=== PATIENT | male | born 1950 | race Caucasian/White ===

== ENCOUNTER 2016-04-07 19:25 | Inpatient (IN) | payer MEDICARE, OTHER ==
--- NOTE | ~2016-04-07 | HP ---
History And Physical [place] [address] [id number] [place]. [address] NAME: DIXON MCKEON : 46 STATUS : ADM IN PAT#: [id number] AGE: 66 ADM/REG DATE : 04/07/16 MR#: [id number] REPORT SERV DATE: 04/08/16 DICTATED BY: MALAIKA LEAVITT DATE: 04/07/16 REPORT STATUS : Draft TRANSCRIBED BY: MODL DATE: 04/07/16 DATE OF ADMISSION: 04/07/2016 CHIEF COMPLAINT: A 66-year-old male presenting with multiple myeloma on chemotherapy, and now a month or more a progressive bronchitis. HISTORY OF PRESENT ILLNESS: The patient's history was obtained through careful interview with the patient, , and daughter, coupled with review of [facility] medical records. The patient first developed multiple myeloma in 2012. He has had complications of lytic bone disease, but no significant renal manifestations. He has been on multiple rounds of different chemotherapy throughout the years followed by Dr. Nina. His last chemotherapy dose was on 03/28/2016. He generally does not have any worsening of chronic symptoms and no acute symptoms after chemotherapy. He states that over the last four weeks he has had progressive shortness of breath characterized by dyspnea on exertion and a cough that he states is "like crazy" often nonproductive. He has had lightheadedness related to his cough and sometimes as if "gurgling" phlegm that he can bring up. He has lost about 5 pounds in last month. He has had a poor appetite. He has had occasional nausea with vomiting. Then for about 10 days he has had fevers and chills on a daily basis measured between 100 and 101.0. He becomes diaphoretic and then even after he changes his shirt it so drenched with sweat, sometimes having night sweats as well. He had a seven-day course of Augmentin completed on 04/05/2016, but it did not help his symptoms at all. REVIEW OF SYSTEMS: Otherwise, a 14-point review of systems was obtained and was negative. PAST MEDICAL HISTORY: 1. Multiple myeloma with lytic bone lesions followed by Dr. Nina, on chemotherapy. 2. Large hiatal hernia. 3. Respiratory syncytial virus (RSV). 4. No cardiac disease. PAST SURGICAL HISTORY: 1. Right hip surgery for multiple myeloma. 2. Right shoulder surgery in December 2015. ALLERGIES: NO KNOWN DRUG ALLERGIES. History And Physical [address] [address] NAME: DIXON MCKEON : [birth year] STATUS : ADM IN PAT#: [id number] AGE: 66 ADM/REG DATE : 04/07/16 MR#: [id number] REPORT SERV DATE: 04/08/16 DICTATED BY: MALAIKA LEAVITT DATE: 04/07/16 REPORT STATUS : Draft TRANSCRIBED BY: BONNIE DATE: 04/07/16 SOCIAL HISTORY: He is . in good health. Has four children, has grandchildren. He lives in [place], [place]. He is retired from [employer]. He also served in [employer] and may have had [place] exposure. No tobacco abuse. No alcohol abuse. FAMILY HISTORY: 1. Mother and father with "old age.". 2. Brother with renal cell carcinoma. CURRENT MEDICATIONS: 1. Acyclovir 400 mg p.o. b.i.d. 2. ProAir. 3. Augmentin 875 mg p.o. b.i.d., completed on 04/05/2016. 4. Guaifenesin with codeine cough syrup. 5. Ibuprofen and naproxen p.r.n. 6. Tylenol cold. PHYSICAL EXAMINATION: VITAL SIGNS: Temperature 100.0, pulse 107, blood pressure 169/74, respiratory rate 22, and O2 saturation 95% on room air. GENERAL: A pleasant, cooperative male. He is not in any particular distress at this time, but just uncomfortable from cough. HEENT: Pupils equal, round, and reactive to light. No conjunctival pallor. No scleral icterus. Nares are patent. Oropharynx is clear of obstruction. Moist mucous membranes. NECK: Trachea midline. No thyromegaly. LYMPH: No cervical lymphadenopathy. No supraclavicular lymphadenopathy. RESPIRATORY: The patient has scattered inspiratory and expiratory wheezes throughout exam. If he had a history of asthma I would thought this was consistent with an asthma exacerbation. He has scattered upper respiratory rhonchi as well. No focal egophony. No dullness to percussion to suggest effusion. The patient does have just a slightly labored respiratory effort, but is in no means distressed. CARDIOVASCULAR: Tachycardic. Regular rhythm. No murmurs, rubs, or gallops. No current extremity edema is appreciated. ABDOMEN: Soft, nontender, and nondistended. Normal bowel sounds auscultated throughout. No organomegaly. DERMATOLOGICAL: Warm and dry extremities. No pallor. No cyanosis. PSYCHIATRIC: Normal affect. Good mood. Alert and oriented x3. LABORATORY DATA: White blood cell count 4.0, hemoglobin 9.3, hematocrit 29.9, and platelets 124. Sodium 140, potassium 3.5, chloride 103, bicarb 27, BUN 15, creatinine 1.09, and glucose 127. Lipase 65. INR 1.1. Lactic acid 1.4. Liver enzymes within normal limits. History And Physical [address] [address] NAME: DIXON MCKEON : 46 STATUS : ADM IN [facility]#: [id number] AGE: 66 ADM/REG DATE : 04/07/16 MR#: [id number] REPORT SERV DATE: 04/08/16 DICTATED BY: MALAIKA LEAVITT DATE: 04/07/16 REPORT STATUS : Draft TRANSCRIBED BY: BONNIE DATE: 04/07/16 STUDIES: 1. Chest x-ray by my own evaluation shows possible new haziness around the left heart border compared to 03/31/2016 chest x-ray, but really no acute cardiopulmonary process could be identified. 2. EKG by my own evaluation shows sinus rhythm, premature atrial complexes. ASSESSMENT AND PLAN: 1. Persistent bronchitis with possible recurrent respiratory syncytial virus ? The patient has SIRS criteria with temperature of 100.0, tachycardia, tachypnea, white blood cell count of 4.0. Check blood cultures. CT scan of the chest is pending. Start empiric IV antibiotics for now, and place on Duo nebulizers. Consult Infectious Disease as the patient failed outpatient Augmentin. Consider Pulmonary consult ? for possible bronchoscopy ? 2. Multiple myeloma, on chemotherapy. Consult Dr. Nina, oncologist. CLARIBEL/BONNIE Malaika Leavitt M.D. / [id number] CC: Janet Humphrey IV, M.D.
--- NOTE | ~2016-04-07 | CN ---
Consultation Report [facility] [address] [place]. [address] NAME: DIXON MCKEON : 46 STATUS : ADM IN PAT#: [id number] AGE: 66 ADM/REG DATE : 04/07/16 MR#: [id number] REPORT SERV DATE: 04/08/16 DICTATED BY: LINDA JALLOH DATE: 04/08/16 REPORT STATUS : Draft TRANSCRIBED BY: MODL DATE: 04/08/16 INFECTIOUS DISEASE CONSULTATION. DATE OF CONSULTATION: REASON FOR REFERRAL: Evaluation and treatment of respiratory illness in an immunosuppressed patient. HISTORY OF PRESENT ILLNESS: The patient is a 66-year-old male with a history of hiatal hernia. It was diagnosed in 2012, with multiple myeloma and he has apparently been on multiple courses of chemotherapy since then. According to the patient, has caused low cell counts and immunosuppression in the past, but he has generally done well. He had a severe respiratory illness in late 2014 that he states diagnosed as RSV and he gradually recovered from that and did not seem to have any long-term sequelae. He became ill in January of this year with upper respiratory type infection with a runny nose, cough that was dry, simply not feeling well. His had very similar symptoms. It waxed and waned. It never really seemed to get better with the persistent hacking cough, and then about two weeks ago, he began feeling worse with increased cough and increased sense of breathlessness. The cough was nonproductive. It was associated with fevers and often soaking sweats, but no shaking chills. He had a course of Augmentin called in by his oncologist, but felt that it resulted in no improvement. Because of the continued sense of being unable to breathe, he came in and was admitted last evening. He was seen here originally on 03/31/2016. A chest x-ray, then was clear. He was discontinued on Augmentin. The chest x-ray last evening, did show some haziness in the left base, so a CT scan of his chest was done and it showed multiple bilateral upper and lower small pleural-based infiltrates. He was unable to produce the sputum. Blood cultures were checked. He was started empirically on vancomycin, cefepime, and states that he feels significantly better this morning. He is not complaining of extrapulmonary symptoms, no headache, mouth ulcers, difficulty swallowing, nausea, vomiting, diarrhea, dysuria, joint pain, or skin rash. He is a burns pa[place] of [place]. He lives in [place] area in [place]. He stays at home mostly because of his medical problems. There are cats at his house, but they are not allowed inside, only outside. He has not been around any farm animals. He has been around grandchildren, but none less than eight to twelve and no one around him has been sick except his in January. He has not had a lot of dust exposure. No known tuberculosis exposure. 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 He has not spent any time in caves or farms, has not been around chickens. No known exposure ever to tuberculosis. PAST MEDICAL HISTORY: Otherwise, unremarkable. MEDICATIONS: Started on vancomycin and cefepime. ALLERGIES: HE HAS NO KNOWN ANTIMICROBIAL ALLERGIES. SOCIAL HISTORY: Nonsmoker. No history of alcohol or substance abuse. Consultation Report [address] [address] NAME: DIXON MCKEON : 46 STATUS : ADM IN [facility]#: [id number] AGE: 66 ADM/REG DATE : 04/07/16 MR#: [id number] REPORT SERV DATE: 04/08/16 DICTATED BY: LINDA JALLOH DATE: 04/08/16 REPORT STATUS : Draft TRANSCRIBED BY: BONNIE DATE: 04/08/16 FAMILY HISTORY: Noncontributory. PHYSICAL EXAMINATION: GENERAL: Nontoxic while at rest, alert and oriented x3. VITAL SIGNS: His temperature here has been normal most recently 97.9, the highest of which was 98.6, present pulse 50, respirations 18, blood pressure 141/63, weight of 107 kg. HEENT: Sclerae clear. No oropharyngeal lesions. NECK: Supple without meningeal signs or lymphadenopathy. LUNGS: There are a few expiratory crackles, but for the most part clear. HEART: Regular rate and rhythm. ABDOMEN: Soft, nontender. Positive bowel sounds without masses or hepatosplenomegaly. EXTREMITIES: Without clubbing, cyanosis, or edema. No swollen, red, or hot joints. No skin lesions or rashes. LABORATORY DATA: His white blood cell count was 4 when he came in, it is 1.9 today with hematocrit of 29.1, platelets 138, 65 segs, 5% bands on the differential. No eosinophilia. BUN and creatinine are 13 and 1.18. No procalcitonin was done. Liver function tests within normal limits. IMPRESSION: Pneumonitis with an odd appearance on the CT scan and a course that sounds like to me, he likely had a viral infection in the beginning and now he has been secondarily complicated by a bacterial infection. He is on daratumumab, which should not cause any particular immunosuppression with multiple myeloma itself certainly places him at risk for a bacterial infections. RECOMMENDATIONS: 1. We will check a procalcitonin and a urine antigen for pneumococcus and Legionella. 2. Follow up blood cultures. 3. He seems to be better on empiric vancomycin, cefepime, we will continue that. 4. Ask Pulmonary to review CT scan with it's odd findings finally. I will follow the patient with you. I appreciate very much for consulting on this patient. SHILPA/BONNIE Linda Jalloh M.D. / [id number] CC: Consultation Report [address] [address] NAME: DIXON MCKEON : 46 STATUS : ADM IN [facility]#: [id number] AGE: 66 ADM/REG DATE : 04/07/16 MR#: [id number] REPORT SERV DATE: 04/08/16 DICTATED BY: LINDA JALLOH DATE: 04/08/16 REPORT STATUS : Draft TRANSCRIBED BY: BONNIE DATE: 04/08/16 MD Linda Guerra IV, M.D.
--- NOTE | ~2016-04-07 | DS ---
Discharge Summary [address] [address] [place]. [address] NAME: DIXON MCKEON : 46 STATUS : DIS IN PAT#: [id number] AGE: 66 ADM/REG DATE : 04/07/16 MR#: [id number] REPORT SERV DATE: 04/11/16 DICTATED BY: DATE: REPORT STATUS : Draft TRANSCRIBED BY: MODL DATE: 04/10/16 ADMISSION DATE: 04/07/2016 DISCHARGE DATE: 04/10/2016 DISCHARGE DIAGNOSES: 1. Chronic nonproductive cough. 2. History of bronchitis with abnormal chest CT in an immunosuppressed patient. 3. Multiple myeloma. 4. Pancytopenia. 5. Systemic inflammatory response syndrome, resolved. CONSULTATIONS: 1. Dr. Jayden Nina, [facility]. 2. Dr. Jayden Ware, Infectious Disease. PERTINENT TESTS AND PROCEDURES: 1. Blood cultures x2 sites, collected 04/07/2016, preliminary results, no growth at two days. 2. Sputum culture, collected 04/08/2016, final result, test not performed. Gram smear results suggestive of poor quality specimen. 3. Chest x-ray, 04/07/2016, impression: New left basilar air space disease that may represent atelectasis or pneumonia. Large hiatal hernia. 4. CT/CTA of the chest, 04/07/2016, impression:. a. No CTA evidence of pulmonary embolus. b. Numerous small peripheral pleural-based ill-defined nodular infiltrates which were not visible on June 2015 CT of the chest. Unusual pattern for multifocal pneumonia. Also, unusual pattern for pneumonia in an immunosuppressed patient. c. Increasing peripheral sclerosis to 1.7 cm diameter lesion right inferior T6 vertebra compared to June 2015 CT. There may be additional cells of myeloma lesions within the T11 vertebra. d. Very large hiatal hernia encompassing the majority of the stomach within the thoracic cavity. 5. Urinalysis, 04/07/2016, result, negative. 6. Legionella and Strep pneumococcus antigens negative. HOSPITAL COURSE: Please refer to history and physical dictated on 04/08/[address] Stuart Savage for complete details of the patient's initial presentation upon admission and health history. Please also refer to consultation dated 04/08/[address] Jayden Ware, Infectious Disease, for additional details pertaining to evaluation and treatment of respiratory illness in an immunosuppressed patient. Briefly, the patient is a 66-year-old male, who is under the outpatient care of Dr. Nina of [facility] for treatment of multiple myeloma. The patient's last chemotherapy was reported to be administered on 03/28/2016. Discharge Summary [address] [address] NAME: DIXON MCKEON : 46 STATUS : DIS IN PAT#: [id number] AGE: 66 ADM/REG DATE : 04/07/16 MR#: [id number] REPORT SERV DATE: 04/11/16 DICTATED BY: DATE: REPORT STATUS : Draft TRANSCRIBED BY: MODL DATE: 04/10/16 The patient presented to the emergency department on 02/05/2016 with complaints of progressive bronchitis for at least one month prior to this admission. Initial emergency department evaluation indicated that the patient met the criteria for SIRS with temperature of 100.0, tachycardia, tachypnea, and white blood cell count of 4.0. The patient was admitted for further evaluation and treatment. 1. Chronic nonproductive cough. This cough has been present since around January 2015. The patient has a history of recurrent bronchitis and respiratory syncytial virus. Sputum culture was obtained during this admission, but specimen was of poor quality. Continue Mucinex and Cheratussin cough syrup as needed. 2. History of bronchitis with abnormal chest CT in an immunosuppressed patient. The patient was followed by Infectious Disease during this admission. The patient likely had a viral infection during initial presentation of symptoms several weeks ago and which now may have been complicated by a bacterial infection. The patient was placed on cefepime and vancomycin during this admission and responded well to antibiotic therapy. The etiology of respiratory illness is unclear, but highly suspicious of underlying bacterial infection based on the patient's improvement with antibiotic therapy. Continue seven-day course of Levaquin 750 mg tablet p.o. every 24 hours, per ID upon discharge. 3. Multiple myeloma. This was diagnosed in 2012. The patient is currently under treatment with daratumumab. The patient will follow up with Dr. Nina at [facility]. 4. Pancytopenia. This is secondary to treatment for multiple myeloma. The patient has not required any transfusions during this admission. Upon the day of discharge, white blood count was reported to be 4.1, hemoglobin 7.9, hematocrit 25.7, and platelets 110. Labs will continued to be monitored on an outpatient basis. 5. Systemic inflammatory response syndrome. The patient met criteria upon admission. All symptoms have since resolved. Continue antibiotic therapy outpatient for seven more days. DISCHARGE CONDITION: At the time of discharge, the patient is hemodynamically stable. DISCHARGE DIET: Regular diet as tolerated. DISCHARGE MEDICATIONS: 1. Acyclovir 400 mg tablet p.o. twice daily for the prevention of shingles. 2. Guaifenesin LA 600 mg tablet p.o. every 12 hours as needed. 3. ProAir two puffs inhaled every four hours as needed for shortness of breath and wheezing. 4. Tylenol 325 mg tablet, take two tablets p.o. every four hours as needed. 5. Colace 100 mg tablet p.o. twice daily as needed. 6. Ibuprofen 200 mg tablet, take one to two tablets p.o. every four hours as needed. The patient was advised to use this medication sparingly secondary to low platelet count and increased risk of bleeding. 7. Aleve 220 mg tablet p.o. every 12 hours as needed. The patient counseled to use this medication sparingly secondary to low platelet count. Discharge Summary [address] [place]. [address] NAME: DIXON MCKEON : 46 STATUS : DIS IN PAT#: [id number] AGE: 66 ADM/REG DATE : 04/07/16 MR#: [id number] REPORT SERV DATE: 04/11/16 DICTATED BY: DATE: REPORT STATUS : Draft TRANSCRIBED BY: MODL DATE: 04/10/16 8. Tylenol [id number] cold tablet one tablet p.o. every 12 hours as needed. The patient's home medication appears to contain pseudoephedrine. The patient was educated to monitor for hypertension while on this medication. 9. Chemotherapy to be resumed, per Dr. Nina at [facility]. 10.Cheratussin AC 10 mL p.o. every four hours as needed for cough and congestion. The patient was educated not to exceed 2400 mg per day of guaifenesin from all sources. 11.Levaquin 750 mg tablet p.o. every 24 hours x7 days. DISCHARGE INSTRUCTIONS: Follow up with Dr. Nina, [facility], 04/11/2016, at 8 a.m. The patient and his spouse were instructed to return to the emergency department for any acute onset of fever of 100.4, greater lasting more than one hour, intractable chills, sweats, increase in cough frequency or sputum production, intractable nausea, vomiting, diarrhea, or any other health concerns that are deviations from the patient's baseline status at the time of this discharge. CANDIDO/BONNIE YAZAN Nicolas / [id number] CC: Janet Guillen IV, M.D. Mark Anderson, M.D. Kevin P Luce, M.D.
[2016-04-07 17:23] LABS: BASOPHILS 0.3 %; BASOPHILS ABSOLUTE 0.01 10/3/uL (0.0-0.16); EOSINOPHILS 3.3 %; EOSINOPHILS ABSOLUTE 0.13 10/3/uL (0.0-0.53); ER CBC TAT 0 Hrs 05 Mins; HEMATOCRIT 29.9 % (40.0-51.0); HEMOGLOBIN 9.3 g/dL (13.6-17.8); LYMPHOCYTES ABSOLUTE 0.52 10/3/uL (0.67-4.30); MANUAL DIFF NO %; MEAN CORPUS HGB CONC 31.1 g/dL (32.0-36.0); MEAN CORPUSCULAR HEMOGLOB 26.4 pg (26.0-34.0); MEAN CORPUSCULAR VOLUME 84.9 fL (80-100); MEAN PLATELET VOLUME 11.4 fL (9.2-13.0); MONOCYTES ABSOLUTE 0.52 10/3/uL (0.21-1.20); NEUTROPHILS 70.4 %; NEUTROPHILS ABSOLUTE 2.81 10/3/uL (2.02-8.40); PLATELET COUNT 124 10/3/uL (150-400); RBC DISTRIBUTION WIDTH 16.3 % (12.0-16.0); RED CELL COUNT 3.52 10/6/uL (4.7-6.1)
[2016-04-07 17:34] LABS: INTERNATIONAL NORMAL RATI 1.1 UNITS (-); PARTIAL THROMBO TIME 27.9 SEC (22.5-37.2); PROTIME (NOT ORD) 13.6 SEC (12.0-14.5)
[2016-04-07 17:37] LABS: A/G RATIO 0.8 (0.7-1.9); ALBUMIN 3.3 G/DL (3.5-5.0); ALKALINE PHOSPHATASE 56 U/L (45-117); BUN (BLOOD UREA NITROGEN) 15 MG/DL (6-23); CALCIUM, SERUM 8.6 MG/DL (8.5-10.4); CHLORIDE, SERUM 103 MMOL/L (96-112); CO2 (CARBON DIOXIDE) 27 MMOL/L (24-34); CREATININE 1.09 MG/DL (0.70-1.30); GFR AFRICAN AMERICAN 80 ML/MIN (>=60); GFR NON AFRICAN AMERICAN 69 ML/MIN (>=60); GLOBULIN 3.9 G/DL (2.5-4.1); GLUCOSE, SERUM 127 MG/DL (60-99); POTASSIUM, SERUM 3.5 MMOL/L (3.5-5.3); SGOT(AST) 18 U/L (5-40); SGPT(ALT) 22 U/L (5-65); SODIUM, SERUM 140 MMOL/L (135-148); TOTAL BILIRUBIN 0.7 MG/DL (0-1.2); TOTAL PROTEIN 7.2 G/DL (6.0-8.5)
[2016-04-07 17:39] LABS: LACTATE 1.4 MMOL/L (0.3-2.4)
[2016-04-07 18:07] LABS: DIRECT BILIRUBIN 0.1 MG/DL (0.0-0.4); INDIRECT BILIRUBIN(NOT ORDER) 0.6 MG/DL (0.1-0.9)
[~2016-04-07 19:25] MED LIST: ADVIL PO; ALEVE220 MG PO; ASA5GR PO; AUG875 PO; BIST PO; C5; CHERATUSSIN PO; FESO4 PO; IRON325 MG PO; LEVAQUIN750 MG PO; LOVENOX40 SC; MVI PO; NORCO1 TA1 PO; OXYCOD PO; PCET PO; PROAIR HFA INH; T PO; TYLENOL COL5 PO; VELCADE SQ; VITAMIN D31000 UNIT PO; ZOVIRAX400 MG PO; [UNRECOGNIZED DRUG - REMARK] IV
[2016-04-07 23:44] LABS: ASCORBIC ACID (UR NOT ORDER) NEG (NEG); BILIRUBIN, URINE NEGATIVE (NEG); ER URINALYSIS TAT 0 Hrs 00 Mins; KETONE, URINE NEGATIVE (NEG); LEUKOCYTE ESTERASE(NOT OR NEG (NEG); NITRITE (URINE) NEG (NEG); WBC (NOT ORDERED) (RFLEX) 1 (0-5)
[2016-04-08 05:18] LABS: HEMATOCRIT 29.1 % (40.0-51.0); MEAN CORPUS HGB CONC 30.9 g/dL (32.0-36.0); MEAN CORPUSCULAR HEMOGLOB 26.5 pg (26.0-34.0); MEAN CORPUSCULAR VOLUME 85.6 fL (80-100); MEAN PLATELET VOLUME 12.6 fL (9.2-13.0); PLATELET COUNT 138 10/3/uL (150-400); RBC DISTRIBUTION WIDTH 16.1 % (12.0-16.0)
[2016-04-08 05:24] LABS: PARTIAL THROMBO TIME 27.5 SEC (22.5-37.2); PROTIME (NOT ORD) 13.2 SEC (12.0-14.5)
[2016-04-08 05:30] LABS: WHITE BLOOD CELLS 1.9 10/3/uL (4.5-10.5)
[2016-04-08 05:31] LABS: MANUAL DIFF YES %
[2016-04-08 05:37] LABS: A/G RATIO 0.8 (0.7-1.9); ALKALINE PHOSPHATASE 56 U/L (45-117); BUN (BLOOD UREA NITROGEN) 13 MG/DL (6-23); CALCIUM, SERUM 8.2 MG/DL (8.5-10.4); CHLORIDE, SERUM 108 MMOL/L (96-112); CO2 (CARBON DIOXIDE) 24 MMOL/L (24-34); CPK 195 U/L (0-200); CREATININE 1.18 MG/DL (0.70-1.30); GFR AFRICAN AMERICAN 73 ML/MIN (>=60); GFR NON AFRICAN AMERICAN 63 ML/MIN (>=60); SGOT(AST) 18 U/L (5-40); SGPT(ALT) 22 U/L (5-65); SODIUM, SERUM 143 MMOL/L (135-148); TROPONIN I <0.02 NG/ML (<0.05)
[2016-04-08 05:41] LABS: GLUCOSE, SERUM 214 MG/DL (60-99); TOTAL BILIRUBIN 1.6 MG/DL (0-1.2)
[2016-04-08 06:46] LABS: BAND NEUTROPHILS 5 %; EOSINOPHILS 2 %; EOSINOPHILS ABSOLUTE (CALC) 0.04 10/3/uL (0.0-0.53); HYPOCHROMIA 1+ (3-10/OIF) (0-2/OIF); LYMPHOCYTES 21 %; MONOCYTES 7 %; MONOCYTES ABSOLUTE (CALC) 0.13 10/3/uL (0.21-1.20); NEUTROPHILS ABSOLUTE (CALC) 1.33 10/3/uL (2.02-8.40); PLATELET ESTIMATE SLT DEC (ADEQUATE); SEGMENTED NEUTROPHIL (0) 65 %; TOTAL NUCLEATED CELLS 100
[2016-04-08 06:47] LABS: ELLIPTOCYTES 1+ (3-10/OIF) (0-2/OIF); HELMET CELLS OCC (0-2/OIF); MACROCYTES 1+ (5-10/OIF) (0-5/OIF); MICROCYTES 1+ (5-10/OIF) (0-5/OIF); POLYCHROMASIA 1+ (2-5/OIF) (0-1/OIF); TEARDROP SHAPED RBCS OCC (0-2/OIF)
[2016-04-08 10:19] LABS: PROCALCITONIN <0.05 ng/mL (<0.5)
[2016-04-09 05:21] LABS: BASOPHILS 0.2 %; BASOPHILS ABSOLUTE 0.01 10/3/uL (0.0-0.16); EOSINOPHILS 0.6 %; EOSINOPHILS ABSOLUTE 0.03 10/3/uL (0.0-0.53); HEMOGLOBIN 7.3 g/dL (13.6-17.8); IMMATURE GRANULOCYTES 0.2 %; IMMATURE GRANULOCYTES ABSOLUTE 0.01 10/3/uL (0.0-0.11); LYMPHOCYTES 12.8 %; LYMPHOCYTES ABSOLUTE 0.64 10/3/uL (0.67-4.30); MEAN CORPUS HGB CONC 30.3 g/dL (32.0-36.0); MEAN CORPUSCULAR HEMOGLOB 25.8 pg (26.0-34.0); MEAN CORPUSCULAR VOLUME 85.2 fL (80-100); MEAN PLATELET VOLUME 11.5 fL (9.2-13.0); MONOCYTES 13.4 %; MONOCYTES ABSOLUTE 0.67 10/3/uL (0.21-1.20); NEUTROPHILS 72.8 %; NEUTROPHILS ABSOLUTE 3.65 10/3/uL (2.02-8.40); PLATELET COUNT 112 10/3/uL (150-400); RBC DISTRIBUTION WIDTH 16.5 % (12.0-16.0); RED CELL COUNT 2.83 10/6/uL (4.7-6.1)
[2016-04-09 05:25] LABS: HEMATOCRIT 24.1 % (40.0-51.0); MANUAL DIFF NO %
[2016-04-09 06:05] LABS: IMMUNOGLOBULIN A < 8 MG/DL (70-420); IMMUNOGLOBULIN G 743 MG/DL (673-1464); IMMUNOGLOBULIN M 9 MG/DL (30-270)
[2016-04-09 16:27] LABS: HEMATOCRIT 26.1 % (40.0-51.0); HEMOGLOBIN 7.8 g/dL (13.6-17.8)
[2016-04-10 05:02] LABS: BASOPHILS 0.5 %; BASOPHILS ABSOLUTE 0.02 10/3/uL (0.0-0.16); EOSINOPHILS 3.9 %; EOSINOPHILS ABSOLUTE 0.16 10/3/uL (0.0-0.53); HEMATOCRIT 25.7 % (40.0-51.0); HEMOGLOBIN 7.9 g/dL (13.6-17.8); IMMATURE GRANULOCYTES 0.5 %; IMMATURE GRANULOCYTES ABSOLUTE 0.02 10/3/uL (0.0-0.11); LYMPHOCYTES 14.3 %; LYMPHOCYTES ABSOLUTE 0.58 10/3/uL (0.67-4.30); MEAN CORPUS HGB CONC 30.7 g/dL (32.0-36.0); MEAN CORPUSCULAR HEMOGLOB 26.7 pg (26.0-34.0); MEAN CORPUSCULAR VOLUME 86.8 fL (80-100); MONOCYTES 16.5 %; MONOCYTES ABSOLUTE 0.67 10/3/uL (0.21-1.20); NEUTROPHILS 64.3 %; NEUTROPHILS ABSOLUTE 2.61 10/3/uL (2.02-8.40); PLATELET COUNT 110 10/3/uL (150-400); RBC DISTRIBUTION WIDTH 16.7 % (12.0-16.0); RED CELL COUNT 2.96 10/6/uL (4.7-6.1); WHITE BLOOD CELLS 4.1 10/3/uL (4.5-10.5)
[2016-04-10 05:03] LABS: MANUAL DIFF NO %
[2016-04-10 05:26] LABS: BUN (BLOOD UREA NITROGEN) 11 MG/DL (6-23); CHLORIDE, SERUM 112 MMOL/L (96-112); CO2 (CARBON DIOXIDE) 22 MMOL/L (24-34); GFR AFRICAN AMERICAN 101 ML/MIN (>=60); GFR NON AFRICAN AMERICAN 87 ML/MIN (>=60); SODIUM, SERUM 145 MMOL/L (135-148)
[2016-04-10 05:50] LABS: GLUCOSE, SERUM 90 MG/DL (60-99); POTASSIUM, SERUM 3.1 MMOL/L (3.5-5.3)
[2016-04-10] MEDS ORDERED: LEVAQUIN750 MG PO (11:02)
[2016-04-10] MEDS ORDERED: MUCINEX600 MG PO (11:08)
[2016-04-10] MEDS ORDERED: T PO (11:09)
[2016-04-10] MEDS ORDERED: DSS PO (11:09)
[2016-04-11 12:33] LABS: IMMUNOGLOBULIN E 5.1 kU/L (0.0-158.0)
[2016-04-11 17:46] LABS: IMMUNOGLOBULIN D <0.7 mg/dL (<15.4)
[2016-08-15] MEDS ORDERED: REVLIMID25 MG PO (11:43)
[2016-08-15] MEDS ORDERED: ADVIL PO (11:44)
[2016-08-15] MEDS ORDERED: ALEVE220 MG PO (11:44)
== END 2016-04-10 11:42 | disposition home or self-care (01) | DRG 871 ==
LOC: ER 19:25 → 4SO 20:43 → 4EA 04-08 17:01
PROVIDERS: Emergency Medicine; Hospitalist; Internal Medicine; Internal Medicine Hematology & Oncology
DX: A41.9 Sepsis, unspecified organism (principal); D61.810 Antineoplastic chemotherapy induced pancytopenia; J15.9 Unspecified bacterial pneumonia; C90.00 Multiple myeloma not having achieved remission; J42 Unspecified chronic bronchitis
CPT/HCPCS: 71020; 71275; 80048; 80053; 81001; 82248; 82550; 82553; 82784; 82785; 83605; 83690; 83735; 83880; 84145; 84443; 84484; 85014; 85018; 85025; 85610; 85730; 87040; 87070; 87205; 87449; 93005; 94640; 96365; 96375; 99285; A9270-GY; J0692; J2405; J2930; J3370

== ENCOUNTER 2016-06-07 08:12 | Inpatient (IN) | payer MEDICARE, OTHER ==
[2016-05-29 16:00] LABS: WBC (NOT ORDERED) (RFLEX) 0 (0-5)
[2016-05-29 16:08] LABS: BASOPHILS 0 %; EOSINOPHILS 4.1 %; EOSINOPHILS ABSOLUTE 0.28 10/3/uL (0.0-0.53); HEMATOCRIT 30.8 % (40.0-51.0); HEMOGLOBIN 9.7 g/dL (13.6-17.8); IMMATURE GRANULOCYTES 0.3 %; IMMATURE GRANULOCYTES ABSOLUTE 0.02 10/3/uL (0.0-0.11); LYMPHOCYTES 17.9 %; LYMPHOCYTES ABSOLUTE 1.23 10/3/uL (0.67-4.30); MANUAL DIFF NO %; MEAN CORPUS HGB CONC 31.5 g/dL (32.0-36.0); MEAN CORPUSCULAR HEMOGLOB 27.1 pg (26.0-34.0); MEAN PLATELET VOLUME 11.5 fL (9.2-13.0); MONOCYTES 12.4 %; MONOCYTES ABSOLUTE 0.85 10/3/uL (0.21-1.20); NEUTROPHILS 65.3 %; PLATELET COUNT 203 10/3/uL (150-400); RBC DISTRIBUTION WIDTH 18.1 % (12.0-16.0); RED CELL COUNT 3.58 10/6/uL (4.7-6.1); WHITE BLOOD CELLS 6.9 10/3/uL (4.5-10.5)
[2016-05-29 16:14] LABS: PARTIAL THROMBO TIME 23.7 SEC (22.5-37.2); PROTIME (NOT ORD) 13.3 SEC (12.0-14.5)
[2016-05-29 16:24] LABS: A/G RATIO 0.9 (0.7-1.9); ALBUMIN 3.4 G/DL (3.5-5.0); ALKALINE PHOSPHATASE 56 U/L (45-117); CALCIUM, SERUM 8.5 MG/DL (8.5-10.4); CHLORIDE, SERUM 109 MMOL/L (96-112); CO2 (CARBON DIOXIDE) 23 MMOL/L (24-34); CREATININE 1.39 MG/DL (0.70-1.30); GFR AFRICAN AMERICAN 60 ML/MIN (>=60); GFR NON AFRICAN AMERICAN 52 ML/MIN (>=60); GLOBULIN 3.7 G/DL (2.5-4.1); GLUCOSE, SERUM 98 MG/DL (60-99); POTASSIUM, SERUM 3.3 MMOL/L (3.5-5.3); SGOT(AST) 9 U/L (5-40); SGPT(ALT) 19 U/L (5-65); SODIUM, SERUM 142 MMOL/L (135-148); TOTAL PROTEIN 7.1 G/DL (6.0-8.5)
[2016-05-29 16:27] LABS: BUN (BLOOD UREA NITROGEN) 19 MG/DL (6-23); TOTAL BILIRUBIN 0.4 MG/DL (0-1.2)
[2016-05-29 16:50] LABS: ASCORBIC ACID (UR NOT ORDER) NEG (NEG); BILIRUBIN, URINE NEGATIVE (NEG); KETONE, URINE TRACE MG/DL (NEG); LEUKOCYTE ESTERASE(NOT OR NEG (NEG)
--- NOTE | ~2016-06-07 | OP ---
Record Of Operation [facility] [address] [place]. 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 PROCEDURES PERFORMED: Right lower extremity removal of hardware followed by application of total hip arthroplasty as well as application of bone graft and application of open reduction and internal fixation, greater trochanteric region. SURGEON: Cassi Persaud MD. ASSISTANTS: 1. Deidre Hernandez. 2. Ryan Barcenas. ANESTHESIA: General with local infusion. PROCEDURE IN DETAIL: The patient was clearly identified, and after obtaining informed consent was brought to the operating room at [facility] where he was induced under general anesthesia, placed carefully in the left lateral decubitus position, and his right lower extremity and flank prepped and draped in the usual manner. This concluded, and after an appropriate time-out procedure was performed, the distal lateral screw site was encountered, through an approximately 1-cm incision the skin was divided, the fascial planes were divided, the screw head was removed on the lateral portion with a screwdriver in that the screw was broken through the Gamma nail. A K-wire was utilized to tap it gently into the medial portion, and through an anterior approach approximately the same length. Hemostats were utilized to palpate the screw which was protruding through the medial portion of the distal femur and grasped it while it was continued to be pushed out from the K-wire through the femur and then gently removed from the wound. These areas were then copiously irrigated, closed with Vicryl and stapled later. Subsequently, a posterolateral approach to the hip was utilized, the prior Gamma nail incision was somewhat more anterior; therefore, a more standard approach was felt appropriate and begun. The skin was divided, the fascial planes were elevated, the soft tissues were gently elevated as well, and a Charnley retractor was applied. The piriformis was identified, tagged, divided, and retracted over the sciatic nerve and felt deep in the wound; at which point, the joint capsule was carefully opened revealing the hip itself, and initially the proximal portion of the femur was sounded with a spinal needle until the proximal portion of the Gamma nail was encountered, cleansing the region, was carefully removed with a [place] after freeing the surrounding soft tissues. Image intensification helped guide us to the lag screw which was then encountered, the tissues were then divided, and after cleansing these tissues, the lag Record Of Operation [facility] [address] [place]. [address] NAME: DIXON MCKEON : 46 STATUS : ADM IN [facility]#: [id number] AGE: 66 ADM/REG DATE : 06/07/16 MR#: [id number] REPORT SERV DATE: 06/08/16 DICTATED BY: CASSI PERSAUD DATE: 06/07/16 REPORT STATUS : Draft TRANSCRIBED BY: BONNIE DATE: 06/07/16 screw was then uneventfully removed as well. Subsequently, a provisional femoral neck cut was made exposing the proximal femur, the area of nonunion which was laden with a metallic debris-type tissue but no obvious tumor although all this was sent to Pathology was debrided and subsequently the guanaco was encountered, the more proximal end though was within the construct of the greater trochanteric region, and therefore, cross-threading with a corkscrew device the Gamma nail was having difficulty being removed, although it was moving somewhat freely in the femoral canal. Carefully over-reaming and curetting the region, we entered the point where with a bone hook and some minimum distraction we were eventually able to remove the Gamma nail. This concluded, the acetabulum was exposed, the labral tissues and foveal tissues were removed, reamings performed, and acetabular components placed uneventfully with the [place] [employer] size 52+4 neutral trial liner and no screws. Focusing then at this point on the femur, the cortical drill sites were carefully gingerly reamed from the proximal loose fragment of intertrochanteric region into the canal itself, and reaming carefully to 19 mm with excellent purchase trialing was performed for the reclaim hip. The proximal femur was then carefully prepared and subsequently trialled successfully, and the permanent femoral components were then placed after placing the permanent acetabular component. Copious irrigation was performed and Signafuse bone graft was placed into the region of the subtrochanteric area where there was bony contact, although the calcar seemed somewhat weaker with some missing bone in that region. This all concluded, a [employer] Accord plate 8 cable was then opened, carefully placed into position, and carefully placed with good stability of the proximal trochanteric region to the femoral shaft itself. This concluded, the area was gently irrigated avoiding any irrigation along the bone graft; at which point, the leg was then carefully closed in layers and dressed. The patient was then allowed to awaken and was transferred to the recovery room in stable condition having tolerated the procedure well. ESTIMATED BLOOD LOSS: 350. FLUIDS: 2 L with 1 unit packed red blood cells. TOURNIQUET TIME: None. PATHOLOGY SENT: Specimen. MICROBIOLOGY: None. COMPLICATIONS: None. SPONGE AND NEEDLE COUNTS: Reportedly correct. ANTIBIOTICS: Administered appropriately preoperatively and ordered to be discontinued within 23 hours. IMPLANTS: Signafuse bone graft 15 mL; Accord 8 cable plate and associated cables, [place] acetabulum by DePuy size 52+4 neutral, no screws, and a femoral component being the DePuy reclaim hip, 19 x 190 stem, 24 x 75 x 75 body, with a -2/36 metal femoral head. Record Of Operation [address] [address] NAME: DIXON MCKEON : 46 STATUS : ADM IN [facility]#: [id number] AGE: 66 ADM/REG DATE : 06/07/16 MR#: [id number] REPORT SERV DATE: 06/08/16 DICTATED BY: CASSI PERSAUD DATE: 06/07/16 REPORT STATUS : Draft TRANSCRIBED BY: BONNIE DATE: 06/07/16 SHAMAR/BONNIE Cassi Persaud M.D. / [id number] CC: Cassi Persaud M.D.
--- NOTE | ~2016-06-07 | DS ---
Discharge Summary [facility] [address] [place]. [address] NAME: DIXON MCKEON : 46 STATUS : DIS IN PAT#: [id number] AGE: 66 ADM/REG DATE : 06/07/16 MR#: [id number] REPORT SERV DATE: 06/22/16 DICTATED BY: CASSI PERSAUD DATE: 06/21/16 REPORT STATUS : Draft TRANSCRIBED BY: MODAbilio DATE: 06/21/16 Data Collection from hospitalization DISCHARGE DIAGNOSES: 1. 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 2. Obstructive sleep apnea. 3. Restless legs syndrome. 4. Multiple myeloma. CONSULTATIONS: None. PROCEDURES PERFORMED: Right lower extremity removal of hardware followed by application of total hip arthroplasty as well as application of bone graft and application of open reduction and internal fixation, greater trochanteric region, 06/07/2016. PATHOLOGY: Bone, soft tissue, and hardware right hip joint arthroplasty, no significant acute inflammation. Orthopedic hardware (gross diagnosis). MEDICATIONS: Tylenol 650 mg every four hours as needed, Zovirax 400 mg twice a day, [place] 5/325 one to two tablets every four hours as needed, Zofran 4 mg every six hours as needed, Coumadin as instructed. CONDITION AT DISCHARGE: Stable. DISPOSITION: The patient was discharged home on a regular diet with activities as instructed. He would follow up with , 07/23/2016. He would follow up with Derek Hinton, 06/20/2016. HOSPITAL COURSE: This is a 66-year-old man who has right subtrochanteric nonunion with failure of long Gamma nail being broken at the lag screw position as well as a distal broken locking screw due to prior multiple myeloma primary in this region. Treatment options were discussed and it was elected to proceed with surgical intervention. He was admitted to the hospital at this time for further evaluation and treatment. Upon admission, he was taken to the operating room where he underwent the above-mentioned procedure. He tolerated this well. There were no complications. On postop day #1, he was evaluated by Occupational and Physical Therapy. He was in no acute distress. He was doing well. His lungs were clear. Lenalidomide was continued over the next couple of days. He said he felt less sore. He was wanting to go home. It was explained to the patient and his that the must pass physical therapy. Creatinine level was 0.96. He had been diagnosed about a month previously with shingles, acyclovir was continued. He had received two units of packed red blood cells. Discharge planning was performed on 06/11/2016. He was encouraged to perform well on stairs so he could go home. LEIGH hose were in place. Discharge instructions were given. Due to his improved and stable condition, he was discharged home to be followed by Home Health Care with the above-stated instructions. Discharge Summary [facility] [address] [place]. [address] NAME: DIXON MCKEON : 46 STATUS : DIS IN [facility]#: [id number] AGE: 66 ADM/REG DATE : 06/07/16 MR#: [id number] REPORT SERV DATE: 06/22/16 DICTATED BY: CASSI PERSAUD DATE: 06/21/16 REPORT STATUS : Draft TRANSCRIBED BY: BONNIE DATE: 06/21/16 Information collected by: Samantha Gtz I submit the above information as my discharge summary. SHAVONNE/BONNIE Cassi Persaud M.D. / [id number] CC: Janet Martinez III, D.O.
[~2016-06-07 08:12] MED LIST changes: +DSS PO; +MUCINEX600 MG PO
[2016-06-07 21:44] LABS: HEMATOCRIT 28.8 % (40.0-51.0); HEMOGLOBIN 9.3 g/dL (13.6-17.8)
[2016-06-08 04:38] LABS: HEMATOCRIT 28.5 % (40.0-51.0); HEMOGLOBIN 9.2 g/dL (13.6-17.8)
[2016-06-08 04:43] LABS: INTERNATIONAL NORMAL RATI 1.2 UNITS (-); PROTIME (NOT ORD) 14.9 SEC (12.0-14.5)
[2016-06-08 04:53] LABS: BUN (BLOOD UREA NITROGEN) 22 MG/DL (6-23); CHLORIDE, SERUM 108 MMOL/L (96-112); CO2 (CARBON DIOXIDE) 20 MMOL/L (24-34); CREATININE 1.88 MG/DL (0.70-1.30); GFR AFRICAN AMERICAN 42 ML/MIN (>=60); GFR NON AFRICAN AMERICAN 36 ML/MIN (>=60); SODIUM, SERUM 141 MMOL/L (135-148)
[2016-06-08 04:59] LABS: CALCIUM, SERUM 7.2 MG/DL (8.5-10.4); GLUCOSE, SERUM 175 MG/DL (60-99); POTASSIUM, SERUM 4.4 MMOL/L (3.5-5.3)
[2016-06-09 03:51] LABS: HEMATOCRIT 19.7 % (40.0-51.0); HEMOGLOBIN 6.6 g/dL (13.6-17.8)
[2016-06-09 03:53] LABS: INTERNATIONAL NORMAL RATI 2.2 UNITS (-)
[2016-06-09 03:54] LABS: PROTIME (NOT ORD) 24.4 SEC (12.0-14.5)
[2016-06-09 03:59] LABS: CHLORIDE, SERUM 106 MMOL/L (96-112); CREATININE 1.52 MG/DL (0.70-1.30); GFR AFRICAN AMERICAN 54 ML/MIN (>=60); GFR NON AFRICAN AMERICAN 46 ML/MIN (>=60); SODIUM, SERUM 141 MMOL/L (135-148)
[2016-06-09 04:00] LABS: BUN (BLOOD UREA NITROGEN) 17 MG/DL (6-23); CALCIUM, SERUM 6.9 MG/DL (8.5-10.4); CO2 (CARBON DIOXIDE) 25 MMOL/L (24-34); GLUCOSE, SERUM 102 MG/DL (60-99); POTASSIUM, SERUM 3.4 MMOL/L (3.5-5.3)
[2016-06-10 05:24] LABS: HEMATOCRIT 23.3 % (40.0-51.0); HEMOGLOBIN 8.1 g/dL (13.6-17.8)
[2016-06-10 05:26] LABS: INTERNATIONAL NORMAL RATI 2.1 UNITS (-); PROTIME (NOT ORD) 23.1 SEC (12.0-14.5)
[2016-06-10 05:35] LABS: CALCIUM, SERUM 7.3 MG/DL (8.5-10.4); CHLORIDE, SERUM 108 MMOL/L (96-112); CO2 (CARBON DIOXIDE) 24 MMOL/L (24-34); GFR AFRICAN AMERICAN 94 ML/MIN (>=60); GFR NON AFRICAN AMERICAN 81 ML/MIN (>=60); GLUCOSE, SERUM 100 MG/DL (60-99); POTASSIUM, SERUM 3.4 MMOL/L (3.5-5.3); SODIUM, SERUM 141 MMOL/L (135-148)
[2016-06-10 05:36] LABS: BUN (BLOOD UREA NITROGEN) 9 MG/DL (6-23); CREATININE 0.96 MG/DL (0.70-1.30)
[2016-06-11 05:11] LABS: HEMATOCRIT 24.4 % (40.0-51.0); HEMOGLOBIN 8.1 g/dL (13.6-17.8)
[2016-06-11 05:16] LABS: INTERNATIONAL NORMAL RATI 1.7 UNITS (-); PROTIME (NOT ORD) 19.9 SEC (12.0-14.5)
[2016-06-11 05:26] LABS: BUN (BLOOD UREA NITROGEN) 8 MG/DL (6-23); CALCIUM, SERUM 7.5 MG/DL (8.5-10.4); CHLORIDE, SERUM 107 MMOL/L (96-112); CO2 (CARBON DIOXIDE) 25 MMOL/L (24-34); CREATININE 0.94 MG/DL (0.70-1.30); GFR AFRICAN AMERICAN 96 ML/MIN (>=60); GFR NON AFRICAN AMERICAN 83 ML/MIN (>=60); GLUCOSE, SERUM 87 MG/DL (60-99); POTASSIUM, SERUM 3.6 MMOL/L (3.5-5.3); SODIUM, SERUM 140 MMOL/L (135-148)
[2016-06-11] MEDS ORDERED: NORCO1 TA1 PO (10:56)
[2016-06-11] MEDS ORDERED: COUMADIN3 MG (10:57)
[2016-06-11] MEDS ORDERED: ZOFRAN4 PO (10:57)
[2016-08-15] MEDS ORDERED: REVLIMID25 MG PO (11:43)
[2016-08-15] MEDS ORDERED: ALEVE220 MG PO (11:44)
[2016-08-15] MEDS ORDERED: ADVIL PO (11:44)
== END 2016-06-11 16:13 | disposition home health service (06) | DRG 470 ==
LOC: SDC/OF 08:12 → PACU 21:07 → 3SO 22:08
PROVIDERS: Nurse Practitioner Acute Care; Orthopaedic Surgery
PROC: 30233N1 Transfusion of Nonautologous Red Blood Cells into Peripheral Vein, Percutaneous Approach (ICD-10-PCS; 2016-06-07)
PROC: 0YP90JZ Removal of Synthetic Substitute from Right Lower Extremity, Open Approach (ICD-10-PCS; principal; 2016-06-07 09:15)
PROC: 0SR902Z Replacement of Right Hip Joint with Metal on Polyethylene Synthetic Substitute, Open Approach (ICD-10-PCS; 2016-06-07 09:15)
DX: M84.551A Pathological fracture in neoplastic disease, right femur, initial encounter for fracture (principal); N17.9 Acute kidney failure, unspecified; C90.00 Multiple myeloma not having achieved remission; D62 Acute posthemorrhagic anemia; G47.33 Obstructive sleep apnea (adult) (pediatric); G25.81 Restless legs syndrome
CPT/HCPCS: 36415; 71020; 72170; 76000; 80048; 80053; 81001; 85014; 85018; 85025; 85610; 85730; 86850; 86870; 86900; 86901; 86902; 86920; 87641; 88300; 88304; 88311; 93005; 97110-GP; 97116-GP; 97163-GP; 97166-GO; 97530-GP; 97535-GO; A9270-GY; C1769; C1776; J0690; J1170; J1885; J2250; J2274; J2405; J2710; J2795; J3010; P9040

== ENCOUNTER 2016-07-29 23:30 | Emergency (ER) | payer MEDICARE, OTHER ==
[2016-07-29 22:27] LABS: BASOPHILS 0.3 %; BASOPHILS ABSOLUTE 0.01 10/3/uL (0.0-0.16); EOSINOPHILS 5.2 %; EOSINOPHILS ABSOLUTE 0.19 10/3/uL (0.0-0.53); IMMATURE GRANULOCYTES 0.3 %; IMMATURE GRANULOCYTES ABSOLUTE 0.01 10/3/uL (0.0-0.11); LYMPHOCYTES 14.3 %; LYMPHOCYTES ABSOLUTE 0.52 10/3/uL (0.67-4.30); MEAN CORPUS HGB CONC 31.9 g/dL (32.0-36.0); MEAN PLATELET VOLUME 11.6 fL (9.2-13.0); MONOCYTES 9.6 %; MONOCYTES ABSOLUTE 0.35 10/3/uL (0.21-1.20); NEUTROPHILS 70.3 %; NEUTROPHILS ABSOLUTE 2.56 10/3/uL (2.02-8.40); RBC DISTRIBUTION WIDTH 19.6 % (12.0-16.0); RED CELL COUNT 3.96 10/6/uL (4.7-6.1)
[2016-07-29 22:28] LABS: ER CBC TAT 0 Hrs 09 Mins; HEMATOCRIT 37.9 % (40.0-51.0); HEMOGLOBIN 12.1 g/dL (13.6-17.8); MANUAL DIFF NO %; MEAN CORPUSCULAR HEMOGLOB 30.6 pg (26.0-34.0); MEAN CORPUSCULAR VOLUME 95.7 fL (80-100); PLATELET COUNT 85 10/3/uL (150-400); WHITE BLOOD CELLS 3.6 10/3/uL (4.5-10.5)
[2016-07-29 22:35] LABS: ASCORBIC ACID (UR NOT ORDER) NEG (NEG); BILIRUBIN, URINE MODERATE (NEG); ER URINALYSIS TAT 0 Hrs 13 Mins; KETONE, URINE TRACE MG/DL (NEG); LEUKOCYTE ESTERASE(NOT OR TRACE (NEG); NITRITE (URINE) NEG (NEG); WBC (NOT ORDERED) (RFLEX) 4 (0-5)
[2016-07-29 22:39] LABS: A/G RATIO 0.8 (0.7-1.9); ALKALINE PHOSPHATASE 67 U/L (45-117); BUN (BLOOD UREA NITROGEN) 11 MG/DL (6-23); CHLORIDE, SERUM 106 MMOL/L (96-112); CO2 (CARBON DIOXIDE) 25 MMOL/L (24-34); GFR AFRICAN AMERICAN 80 ML/MIN (>=60); GFR NON AFRICAN AMERICAN 69 ML/MIN (>=60); POTASSIUM, SERUM 3.7 MMOL/L (3.5-5.3); SGOT(AST) 16 U/L (5-40); SGPT(ALT) 26 U/L (5-65); SODIUM, SERUM 138 MMOL/L (135-148)
[2016-07-29 22:42] LABS: INTERNATIONAL NORMAL RATI 1.1 UNITS (-)
[2016-07-29 22:45] LABS: PROTIME (NOT ORD) 14.4 SEC (12.0-14.5)
[2016-07-29 22:46] LABS: CALCIUM, SERUM 8.7 MG/DL (8.5-10.4); GLUCOSE, SERUM 105 MG/DL (60-99); TOTAL BILIRUBIN 0.9 MG/DL (0-1.2)
[2016-07-29 23:00] LABS: PLATELET ESTIMATE DEC (ADEQUATE); RBC MORPHOLOGY NORM (NORMAL)
[~2016-07-29 23:30] MED LIST changes: +COUMADIN3 MG; +ZOFRAN4 PO
[2016-07-29 23:49] LABS: INFLUENZA A SCREEN NEGATIVE (NEGATIVE)
[2016-07-29 23:50] LABS: INFLUENZA B SCREEN NEGATIVE (NEGATIVE)
[2016-08-15] MEDS ORDERED: REVLIMID25 MG PO (11:43)
[2016-08-15] MEDS ORDERED: ADVIL PO (11:44)
[2016-08-15] MEDS ORDERED: ALEVE220 MG PO (11:44)
== END 2016-07-30 00:43 | disposition home or self-care (01) ==
LOC: ER 23:30
PROVIDERS: Emergency Medicine
DX: J06.9 Acute upper respiratory infection, unspecified (principal); D64.9 Anemia, unspecified; C90.00 Multiple myeloma not having achieved remission; Z79.01 Long term (current) use of anticoagulants; Z79.899 Other long term (current) drug therapy
CPT/HCPCS: 71020; 80053; 81001; 83605; 85025; 85610; 87040; 87804; 87807; 99283